=== PATIENT | male | born 1950 | race Caucasian/White ===

== ENCOUNTER 2017-02-05 23:44 | Inpatient (IN) | payer MEDICARE ==
[~2017-02-05] VITALS: Ht 162.6 cm; Wt 53.5 kg
[2017-02-05] MEDS ORDERED: DOCU-141 PO (23:54)
[2017-02-05] MEDS ORDERED: CYAN100T3 PO (23:54)
[2017-02-05] MEDS ORDERED: RISP1TAB7 PO (23:54)
--- NOTE | 2017-02-06 02:03 | NUR ---
Pt. admitted to GPS, under care of Dr. Jo Belongs List completed
[2017-02-06 03:06] LABS: *BILIRUBIN,URIN NEGATIVE (NEGATIVE); *BLOOD, URINE NEGATIVE (NEGATIVE); *CLARITY,URINE CLEAR (CLEAR); *COLOR,URINE YELLOW (YELLOW); *KETONES,URINE NEGATIVE (NEGATIVE); *PROTEIN,URINE NEGATIVE (NEGATIVE); *UROBILINOGEN,URINE 0.2 E.U./dl (NORMAL); LEUKOCYTE ESTERASE ,URINE NEGATIVE (NEGATIVE); NITRITE, URINE NEGATIVE (NEGATIVE); PH,URINE 6.5 (5.0-8.0); UGLUCOSE NEGATIVE (NEGATIVE)
[2017-02-06 03:18] LABS: RBC,URINE NONE SEEN /HPF (0-3)
[2017-02-06 03:19] LABS: BACTERIA,URINE NONE SEEN /HPF (NONE SEEN); SQUAMOUS EPITHELIAL CELL,UR NONE SEEN /HPF (NONE SEEN); WBC,URINE 0-3 /HPF (0-3)
[2017-02-06 03:24] VITALS: BP 141/83
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
[2017-02-06 08:09] VITALS: BP 108/56
--- NOTE | 2017-02-06 11:48 | NUR ---
Initial discharge instructions: Pt resides at [facility] [[facility] [place], [place],[address];[phone]].Pt's Next of Kin/Community Health Nurse Supervisor, Rahel Howard [phone] reported the pt may return back once stable.The payee for this facility is the [facility].SW will speak with pt,next of kin,and MD regarding appropriate discharge plans.SW will form a safe and proper discharge.
[2017-02-06 15:12] LABS: CREATININE 1.2 mg/dL (0.6-1.3); POTASSIUM 4.2 mmol/L (3.5-5.1)
[2017-02-06 15:13] LABS: BASOPHILS % (AUTO) 0.3 % (0.0-2.0); EOSINOPHILS # (AUTO) 0.2 K/uL (0.0-0.7); EOSINOPHILS % (AUTO) 2.5 % (0.0-7.0); HEMATOCRIT 37.8 % (40-50); HEMOGLOBIN 12.5 G/DL (14.0-18.0); LYMPHOCYTES # (AUTO) 0.7 K/UL (0.8-4.8); LYMPHOCYTES % (AUTO) 11.6 % (20.5-51.5); MEAN CORPUSCULAR HEMOGLOBIN 29.6 UUG (27.0-31.0); MEAN CORPUSCULAR HGB CONC 33 g/dL (32.0-37.0); MEAN CORPUSCULAR VOLUME 89.4 FL (82.0-92.0); MONOCYTES # (AUTO) 0.3 K/UL (0.1-1.30); MONOCYTES % (AUTO) 5.1 % (0.0-11.0); NEUTROPHILS % (AUTO) 80.5 % (38.5-71.5); PLATELET COUNT (AUTO) 111 K/UL (150-450); RED BLOOD CELL COUNT(AUTO) 4.23 MIL/UL (4.7-6.1); WHITE BLOOD COUNT (AUTO) 6.2 K/UL (4.0-11.2)
[2017-02-06 17:22] VITALS: BP 102/65
--- NOTE | 2017-02-06 19:30 | NUR ---
RECEIVED PATIENT LAYING COMFORTABLY IN BED. NO ACUTE DISTRESS NOTED. A&O X 2. SAFETY INITIATED. BED IN LOW AND LOCKED POSITION. PATIENT HAS EXPRESSIVE DIFFICULTY. CALM AND COOPERATIVE. PATIENT IS NOT AGGRESSIVE. NO C/O PAIN. WILL CONTINUE TO MONITOR.
--- NOTE | 2017-02-06 20:25 | NUR ---
HELD LOVENOX D/T PLATELET WAS LOW 111.
[2017-02-06 20:36] VITALS: BP 122/73
--- NOTE | 2017-02-07 06:37 | NUR ---
PATIENT SLEPT 7.5 HOURS IN MY SHIFT. WAS GIVEN AMBIEN 5 MG. 2200 LAST NIGHT. NO ACUTE DISTRESS NOTED. NO BEHAVIORAL PROBLEMS NOTED. PATIENT REMAINED COOPERATIVE T/O SHIFT. SAFETY AND COMFORT MEASURES MAINTAINED T/O SHIFT. ALL NEEDS MET.
[2017-02-07 07:30] VITALS: BP 130/72
[2017-02-07 16:00] VITALS: BP 133/85
--- NOTE | 2017-02-07 17:00 | NUR ---
ALERT TO SELF ONLY WITH CONFUSSION AND DISORIENTATION BUT HE IS COOPERATIVE WITH MEDICATIONS AND CARE AT THIS TIME IN THE TV ROOM WITH THE REST OF THE PATIENTS TODAY WILL CONTINUE TO PROVIDE SAFE AND THERAPEUTIC ENVIRONMENT AT ALL TIMES
[2017-02-07 20:34] VITALS: BP 118/75
[2017-02-08 07:30] VITALS: BP 109/68
--- NOTE | 2017-02-08 12:40 | NUR ---
PATIENT NOTED TO BE COUGHING WHILE EATING HIS FOOD ALEX STORAGE ENGINEER NOTIFIED WITH ORDER FOR SWALLOW EVAL TODAY.
--- NOTE | 2017-02-08 14:22 | NUR ---
DR STYLES HERE TO SEE PATIENT WITH NEW ORDERS HOLD IS NOW UP TO 14 DAYS AND LITHIUM ADJUSTED.THE SLT HERE TO SEE PATIENT AWAITING FOR HER ASSESSMENTS.
[2017-02-08 15:00] VITALS: BP 118/71
--- NOTE | 2017-02-08 15:15 | NUR ---
PATIENT SEEN BY SPEECH AND LANGUAGE THERAPIST AND STATED THAT PATIENT REQUIRES PUREED DIET WITH NECTAR THICK LIQUIDS AND STATED THAT PATIENT MAY REQUIRE VIDEO SWALLOWING EVALUATION IF PATIENT CONTINUES TO COUGH WITH THE CHANGE IN DIET AND THICKNING
[2017-02-08 20:15] VITALS: BP 117/63
[2017-02-09 07:30] VITALS: BP 114/67
[2017-02-09 15:26] VITALS: BP 90/53
--- NOTE | 2017-02-09 16:12 | NUR ---
REGARDING SWALLOW STUDY RESULTS: SPOKE WITH ALEX ORELLANA REGARDING VIDEO SWALLOW STUDY RESULTS AND S.T. SUGGESTING NPO SINCE PT IS ASPIRATING ALL CONSISTENCIES ON VIDEO. ALEX ORELLANA ASKED IF STAFF THOUGHT PT WOULD LEAVE A G TUBE IN PLACE, STAFF AGREES THEY THINK PT WOULD NOT PULL G TUBE OUT. SPOKE WITH JESSICA (POINT OF CONTACT AND FURNITURE DIPPER OF RESIDENTIAL FACILITY THAT PT LIVES AT) TO SEE IF SHE BELIEVED PT WOULD BE COMPLIANT WITH A G TUBE. JESSICA STATES SHE DID NOT THINK PT WOULD PULL OUT G TUBE BUT DID SAY THEY WOULD NOT BE ABLE TO ACCEPT THE PT BACK TOP THE FACILITY WITH A G TUBE AT THIS TIME. STATES BECAUSE THE PT IS WITH [facility] THE DR WHO SEES HIM THERE WOULD NEED TO SET UP A SPECIAL CARE PLAN WITH THE [facility] TO BE ABLE TO ACCEPT THE PT BACK WITH SPECIAL ACCOMMODATIONS. NOTIFIED ALEX ORELLANA OF CONVERSATION WITH FURNITURE DIPPER, WILL CONTINUE TO CAREFULLY MONITOR PT WHILE EATING/DRINKING.
[2017-02-09 20:09] VITALS: BP 115/67
[2017-02-10 07:30] VITALS: BP 107/66
[2017-02-10 15:00] VITALS: BP 118/64
[2017-02-10 20:56] VITALS: BP 116/72
--- NOTE | 2017-02-10 23:00 | NUR ---
PATIENT RECEIVED LAYING COMFORTABLY IN BED. PLEASANT AND COOPERATIVE NO AGGRESSIVE OR COMBATIVE BEHAVIOR TOWARDS THE STAFF. OTHERWISE VITAL SIGNS WITHIN NORMAL LIMITS. MAINTAINED SAFETY.
--- NOTE | 2017-02-11 05:26 | NUR ---
PATIENT SLEPT GOOD THROUGH THE NIGHT. REMAINED CALM WITH NO COMBATIVE OR AGGRESSIVE BEHAVIOR. OTHERWISE MEDICALLY STABLE NO RESPIRATORY DISTRESS NOTED. KEPT SAFE.
[2017-02-11 07:45] VITALS: BP 119/72
[2017-02-11 16:39] VITALS: BP 98/53
[2017-02-11 20:13] VITALS: BP 111/71
[2017-02-12 07:30] VITALS: BP 110/66
--- NOTE | 2017-02-12 12:30 | NUR ---
PATIENT SEEN AND EXAMINED BY THE SLT STILL HAS EPISODES OF COUGHING WITH MEALS
[2017-02-12 16:47] VITALS: BP 108/56
[2017-02-12 20:17] VITALS: BP 103/62
--- NOTE | 2017-02-13 06:31 | NUR ---
PATIENT SLEPT FOR APPROX. 9HRS THROUGH THE NIGHT. NO AGGRESSIVE BX. NOTED DURING THE SHIFT. CONTINUE WITH PUREED DIET, THICK LIQ. CONTINUE 1:1 SUPERVISION DURING MEALS.
[2017-02-13 07:43] VITALS: BP 97/62
--- NOTE | 2017-02-13 08:51 | NUR ---
DC Plan: Patient will be discharged to [facility] [[address] [place] [address], [id number]; [phone]] via ambulance at 1:00 pm. Spoke with Rahel Howard [phone] at the facility who stated they would accept the patient today. Patient is aware and agreeable with discharge plans as well. Patient will follow-up with (Psychiatrist) [[phone]] and (Wardrobe Assistant) [[phone]] at the facility. For smoking cessation, patient was referred to [employer] [facility] [id number] and [employer] [phone].
--- NOTE | 2017-02-13 12:18 | NUR ---
DR RIP MITCHELL PROVIDED A PRESCRIPTIONS FOR DISCHARGE THAT INCLUDED LOVENOX AND HAND HELD NEBULIZER [facility] WAREHOUSE LOGISTICS MANAGER AWARE AND SHE CALLED THE [facility] FACILITY AND I SPOKE WITH JESSICA AND NOTIFIED HER THAT PATIENT HAS AN ORDER FOR LOVENOX AND ALBUTEROL BY HAND HELD NEBULIZER AND SHE STATED WILL TALK TO THEIR REGULAR DOCTOR WHO WILL ARRANGE FOR HOME HEALTH IF HE THINKS THAT IT IS NECESSARY FOR PATIENT TO GET THESE DRUGS.
--- NOTE | 2017-02-13 14:34 | NUR ---
CALLED PT'S PHARMACY, [facility] ([phone]). SPOKE WITH ONEYDA. FAXED PT'S PRESCRIPTIONS TO THE PHARMACY ([phone]).
--- NOTE | 2017-02-13 15:45 | NUR ---
PATIENT DISCHARGED PICKED UP BY [facility] IN SATISFACTORY CONDITION WITH DISCHARGE INSTRUCTIONS AND PRESCRIPTIONS AND ALL HIS PERSONAL BELONGINGS.
== END 2017-02-13 15:30 | DRG 885 ==
LOC: ER 23:48 → GPS 02-06 02:00
PROVIDERS: ADMIT Psychiatry & Neurology Psychiatry; ATTEND Internal Medicine
DX: F29 Unspecified psychosis not due to a substance or known physiological condition (principal); F03.90 Unspecified dementia, unspecified severity, without behavioral disturbance, psychotic disturbance, mood disturbance, and anxiety; R13.10 Dysphagia, unspecified; F17.200 Nicotine dependence, unspecified, uncomplicated; R62.50 Unspecified lack of expected normal physiological development in childhood; F31.9 Bipolar disorder, unspecified; J98.4 Other disorders of lung
CPT/HCPCS: 36415; 70030-TC; 71010; 74230; 85025; 87086; 90732; 92526; 92610; 92611; 93005; 97110; 97116; 97530; A4663; A9150; J1650